=== PATIENT | female | born 1975 | race Caucasian/White ===

== ENCOUNTER → 2024-03-26 11:16 | Outpatient (REF) | payer MEDICARE, MEDICAID, SELFPAY | LOC: RAD 11:16 | PROVIDERS: ATTENDING PHYSICIAN Internal Medicine Hematology & Oncology; FAMILY PHYSICIAN Internal Medicine | DX: I82.401 Acute embolism and thrombosis of unspecified deep veins of right lower extremity (principal); I26.09 Other pulmonary embolism with acute cor pulmonale; R79.1 Abnormal coagulation profile | CPT/HCPCS: 93971 ==

== ENCOUNTER → 2024-07-31 10:10 | Outpatient (REF) | payer MEDICARE, MEDICAID, SELFPAY | LOC: HWWDC 10:10 | PROVIDERS: ATTENDING PHYSICIAN Internal Medicine | DX: Z12.31 Encounter for screening mammogram for malignant neoplasm of breast (principal) | CPT/HCPCS: 77063; 77067 ==

== ENCOUNTER → 2024-08-10 09:43 | Outpatient (REF) | payer MEDICARE, MEDICAID, SELFPAY | LOC: WDC 09:43 | PROVIDERS: ATTENDING PHYSICIAN Internal Medicine | DX: R92.8 Other abnormal and inconclusive findings on diagnostic imaging of breast (principal) | CPT/HCPCS: 76642 ==

== ENCOUNTER → 2025-02-07 13:56 | Outpatient (REF) | payer MEDICARE, MEDICAID, SELFPAY | LOC: WDC 13:56 | PROVIDERS: ATTENDING PHYSICIAN Internal Medicine | DX: R92.30 Dense breasts, unspecified (principal); R92.8 Other abnormal and inconclusive findings on diagnostic imaging of breast | CPT/HCPCS: 76642 ==

== ENCOUNTER → 2025-08-26 11:20 | Outpatient (REF) | payer MEDICARE, SELFPAY | LOC: RAD 11:20 | PROVIDERS: ATTENDING PHYSICIAN Internal Medicine | DX: S81.002A Unspecified open wound, left knee, initial encounter (principal) | CPT/HCPCS: 73564 ==